=== PATIENT | female | born 1990 | race Caucasian/White ===

== ENCOUNTER 2020-07-23 01:04 | Outpatient (CLI) | payer OTHER, SELFPAY ==
[2020-07-23 18:04] LABS: SARS-CoV-2 RNA PCR Negative
== END 2020-07-23 01:05 | disposition home or self-care (01) ==
LOC: ANHCOVIDDT 01:05
PROVIDERS: Visit Provider Obstetrics & Gynecology
DX: Z01.812 Encounter for preprocedural laboratory examination (principal); Z20.828 Contact with and (suspected) exposure to other viral communicable diseases
CPT/HCPCS: 87635; C9803; U0003

== ENCOUNTER 2020-07-27 01:05 | Day surgery (SDC) | payer OTHER, SELFPAY ==
[2020-07-21 15:51] VITALS: BMI 25.8
--- NOTE | 2020-07-27 11:45 | WPDANESEPPF ---
Anes - Initial Pre Proc Eval Procedure: Operation Date: 07/27/20 13:00 Proposed Procedures p Suction Dilatation and Curettage - Luis William MD Date/Time: 07/27/20 11:45 Surgeon: Luis William MD Pre Op Diagnosis: missed AB Patient Data Age: 30 Gender: F Height: 5 ft 8 in Weight: 77 kg Allergies Allergy/AdvReac Type Severity Reaction Status Date / Time No Known Allergies Allergy Verified 07/27/20 11:16 Home Medications Medication Instructions Recorded Confirmed Type multivitamin 1 tablet PO DAILY 07/21/20 07/27/20 History Patient hx anesthesia problems: none Family hx anesthesia problems: none PMFSH Social History Social History Smoking status: Never smoker Alcohol intake: current Spiritual care concerns: No Anes - Eval Final PreProcedure Day of Procedure 07/27/20 11:45 Patient weight: normal Heart: regular rate and rhythm Lungs: clear to auscultation Airway: Mallampati scale class II Neurological: alert and oriented Last oral intake: >/= 8 hours ASA classification: II Emergent: no Anesthetic plan: proceed Anesthesia type and monitoring: general GIVS and standard monitoring Informed Consent: The patient's anesthetic plan and its attendant risks and benefits were discussed with the patient/family/POA. Questions were solicited and answers provided to the satisfaction of the patient/family/POA.
[2020-07-27] MEDS: LACTATED RINGERS 1,000 ML 30 ML IV CONT (11:46)
[2020-07-27] MEDS: SCOPOLAMINE 1.5 MG PATCH TRANSDERM (11:52)
[2020-07-27] MEDS: ACETAMINOPHEN 500 MG TABLET 1000 MG PO (11:52)
[2020-07-27 11:53] VITALS: BP 116/80; PULSE 85; RESP 16; TEMP 37.2; O2SAT 98
--- NOTE | 2020-07-27 12:07 | P.HP_ITS ---
H&P: HPI History of Present Illness Date/Time: 07/27/20 12:07 Chief complaint: missed AB Narrative: 30 y/o with a missed SAB. We tried cytotec, but she has had no results. Here for surgical managment. Ultrasound shows CRL 4.1 mm. No FHR. MBT Opos. Review of Systems Review of Systems: All systems reviewed & are unremarkable except as noted in HPI and below [facility] Surgical History Surgical History (Updated 07/27/20 @ 12:09 by Luis William MD) History of tonsillectomy and adenoidectomy Social History Social History Smoking status: Never smoker Alcohol intake: current Spiritual care concerns: No Meds Home Medications and Allergies Home Medications Medication Instructions Recorded Confirmed Type multivitamin 1 tablet PO DAILY 07/21/20 07/27/20 History Allergies Allergy/AdvReac Type Severity Reaction Status Date / Time No Known Allergies Allergy Verified 07/27/20 11:16 Vital Signs Vital Signs - 24 hr 07/27/20 11:53 Temperature 37.2 C Pulse Rate 85 Respiratory Rate 16 Blood Pressure 116/80 Pulse Oximetry 98 Exam Const: Orientation/consciousness: patient oriented x3 Other: Well- developed, well-nourished female in no acute distress. Neck: Thyroid: thyroid normal Lymphatic: no lymphadenopathy noted (in neck, axilla or inguinal nodes) Resp: Effort & Inspection: normal respiratory effort Auscultation: clear to auscultation bilaterally Cardio: Rate: regular rate Rhythm: regular rhythm Heart sounds: S1 normal heart sound present and S2 normal heart sound present GI: Other: ABD: Soft, nontender, nondistended. No guarding or rebound tenderness. No hepatosplenomegaly. : General: Yes no CVA tenderness Other: External genitalia: normal female hair distribution, without lesion. Urethral meatus: no lesion, non prolapsed. Bladder: no mass, nontender Vagina: well-estrogenized, without lesion or discharge. No cystocele or re ctocele. Cervix: no lesion or discharge. Uterus: small, anteverted, freely mobile, nontender Adnexa: no mass or tenderness. Anus/perineum: no lesions, nontender Back/Spine/Pelvis: Back: no CVA tenderness Skin: General skin exam: normal color and no rashes or lesions noted Neuro: General: patient oriented x3 Extrem: Other: Extremities: nontender with no edema Psych: Mental Status: mental status grossly normal Affect: normal affect Assessment and Plan Assessment and plan (1) Missed : Code(s): O02.1 - Missed Status: Acute Assessment and Plan: Offered dilation and suction curettage. She understands risks of surgery to include risks of anesthesia, risks of pain, infection, bleeding, blood products, thromboembolic phenomena and damage to adjacent structures such as bowel, bladder, ureters, blood vessels and nerves. She understands all these risks and elects to proceed with surgery.
--- NOTE | 2020-07-27 12:10 | WPDHPUPDATE1 ---
History and Physical Update Update Date/Time: 07/27/20 12:10 History and Physical has been reviewed, including an updated exam of the patient. There are NO changes in the patient's condition. Risks, benefits, and alternatives have been discussed and questions answered. Patient agrees to proceed with procedure.
[2020-07-27] MEDS: LIDOCAINE HCL 1% LOCAL INJ 20 ML VIAL 10 ML INFILTRATE (13:46)
[2020-07-27] MEDS: KETOROLAC 30 MG/ML VIAL (*BKC) IV PUSH (13:47)
--- NOTE | 2020-07-27 13:51 | PM.PROC ---
Procedure Note - Detailed Date of procedure: 07/27/20 Pre-op diagnosis: missed AB Post-op diagnosis: same Procedure performed: Dilation and suction curettage Description of procedure: The patient was taken to the operating room where she was prepared and draped in the usual sterile fashion in the dorsal lithotomy position. The bladder was drained with a red rubber catheter. A sterile speculum was placed into the vagina. The anterior lip of the cervix was grasped with a single-tooth tenaculum. Ten mL of 1% lidocaine was administered in a paracervical block. The cervix was gently dilated using Hegar dilators until an 8mm dilator could be passed. The 8mm curved tip suction curette was advanced. Suction curettage was performed and products of conception were aspirated. Sharp curettage was then performed until a good uterine cry was noted. A final pass with the suction curette was made. The tenaculum was removed. Hemostasis was excellent. Sponge, lap, needle and instrument counts were correct. The patient was taken to the recovery room in stable condition. I was present and scrubbed for the entire procedure. Implants: None Anesthesia: MAC and local (paracervical block) Surgeon: Luis William MD Estimated blood loss (mL): 50 Drains: No Packing: No Pathology: yes (endometrial curettings) Complications: None Condition: stable Disposition: PACU Findings: Products of conception noted.
[2020-07-27 13:53] VITALS: BP 134/85; PULSE 122; RESP 16; O2SAT 95
[2020-07-27 14:10] VITALS: BP 125/77; PULSE 73; RESP 16
[2020-07-27 14:20] VITALS: BP 110/74; PULSE 80; RESP 16
[2020-07-27 14:50] VITALS: BP 112/72; PULSE 74; RESP 16
[2020-07-27] MEDS: oxyCODONE HCL (*CRX) 5 MG TAB IR PO (14:55)
== END 2020-07-27 15:00 | disposition home or self-care (01) ==
PROVIDERS: Visit Provider Obstetrics & Gynecology
PROC: (CPT 59820; principal; 2020-07-27 13:00)
DX: O02.1 Missed abortion (principal)
CPT/HCPCS: 59820; 36415; 85461; 88305; A9270; J1100; J1885; J2250; J2405; J2704; J3010; J7120

== ENCOUNTER → 2020-08-30 13:22 | Outpatient (CLI) | payer OTHER, SELFPAY ==
--- NOTE | ~2020-08-30 | US_ITS ---
EXAMINATION: US thyroid DATE: 08/30/2020 13:40 INDICATION: Thyroid nodule. TECHNIQUE: Multiple ultrasound images of the thyroid were obtained. COMPARISON: None. FINDINGS: The right thyroid lobe measures 4.6 x 1.0 x 1.7 cm. The left thyroid lobe measures 4.8 x 1.3 x 1.4 c m. There is normal echotexture and echogenicity throughout the thyroid gland. No discrete nodules id entified. Normal vascular flow is present. IMPRESSION: 1. Normal thyroid. Reviewed, dictated and finalized at location A. ER/INSTALLER IMPRESSION: 1. Normal thyroid.
== END ==
PROVIDERS: Visit Provider Obstetrics & Gynecology
DX: E04.1 Nontoxic single thyroid nodule (principal)
CPT/HCPCS: 76536

== ENCOUNTER 2021-05-15 18:32 | Observation (INO) | payer OTHER, SELFPAY ==
[2021-05-15 18:49] VITALS: BP 119/66; PULSE 97
[2021-05-15 19:00] VITALS: BP 118/64; PULSE 98; BMI 29.6
--- NOTE | 2021-05-15 21:37 | OBADM ---
This patient, Jennifer Sparks, admitted to the OB room OB Post 112 for observation. Patient/family oriented to hospital policies and general routines including ID bracelet, bed and alarms, visiting hours, pain management, procedures, bathroom and other care routines, personal items, smoking policy, room service/diet, and visiting hours. Patient/Family are encouraged to report perceived risks to care and to ask questions if they do not understand what they are told or what they should do.
--- NOTE | 2021-06-05 08:48 | PM.OBTRLD ---
OB - Triage/Final Diagnosis Visit Information Comments/Additional reasons for admission: I have assessed the risk for this patient, Jennifer Sparks, and determined that she would benefit from observation care. Final Diagnosis (1) False labor: Code(s): O47.9 - False labor, unspecified Status: Acute
== END 2021-05-15 19:57 | disposition home or self-care (01) ==
PROVIDERS: Admitting Provider Obstetrics & Gynecology; Visit Provider Obstetrics & Gynecology
DX: O47.03 False labor before 37 completed weeks of gestation, third trimester (principal); Z3A.30 30 weeks gestation of pregnancy
CPT/HCPCS: G0378; G0379

== ENCOUNTER 2021-07-27 06:06 | Inpatient (IN) | payer OTHER, SELFPAY ==
[2021-07-27] VITALS (54 sets, daily range): BP systolic 72–129; BP diastolic 27–96; PULSE 68–142; RESP 16–18; TEMP 36.6–37.3; O2SAT 96–100; BMI 30.8
--- OUTSIDE RECORDS SUMMARY | 2021-07-27 06:11 | XMS_ITS ---
:1990 Author Care Team Providers Name Role Phone Unassigned Primary Care Provider Unavailable Allergies Code Code System Name Reaction Severity Status Onset NKDA ? Medications Name Status Start Date Stop Date ? ? azithromycin 250 mg tablet Completed ? 10/02 Bactrim DS 800 mg-160 mg tablet Completed ? 05/19/2020 Take 1 tablet every 12 hours by oral route with meals for 7 day s. cephalexin 500 mg capsule Active ? Not av ailable TAKE 1 CAPSULE BY MOUTH EVERY 12 HOURS WITH MEALS FOR 10 DAYS ciprofloxacin 500 mg tablet Completed ? 11/2019 cyclobenzaprine 10 mg tablet Completed ? 11/2020 TK 1 T PO TID PRN Flagyl 500 mg tablet Unknown ? Not availab le Take 1 tablet twice a day by oral route for 7 days. fluconazole 150 mg tablet Completed ? 2019 Take 1 tablet as needed by oral route with meals for 1 day. Fluzone Quad [id number] (PF) 60 mcg (15 Active ? Not available mcg x 4)/0.5 mL IM syringe hydrocodone 5 mg-acetaminophen 325 mg tablet Completed ? 11/16/2020 TK 1 T PO Q 4 H PRN P Microgestin FE 10/05 (28) 1 mg-20 mcg (21)/75 mg (7) tablet Compl eted ? 05/19/2020 TAKE ONE TABLET BY MOUTH ONCE DAILY misoprostol 200 mcg tablet Completed ? 11/16 I 4 TS PER VAGINA ONCE. REPEAT IN 4 DAYS IF NEEDED norethindrone (contraceptive) 0.35 mg Completed ? 11/16/2020 tablet promethazine 12.5 mg tablet Completed ? 11/2020 TK 1 T PO Q 6 H PRN phenazo
[2021-07-27 06:56] LABS: Basophils Percent Auto 0.2 % (0.2-1.2); Eosinophils Absolute Auto 0.1 K/mm3 (0-0.3); Eosinophils Percent Auto 0.6 % (0-4.4); Hematocrit 33.9 % (37.0-47.0); Immature Granulocyte Percent A 1.9 % (0-0.5); Lymphocytes Absolute Auto 1.71 K/mm3 (0.9-3.2); Lymphocytes Percent Auto 16.4 % (18.3-44.2); Mean Corpuscular HGB Conc 32.4 g/dl (32-36); Mean Corpuscular Hemoglobin 27.4 pg (26-34); Mean Corpuscular Volume 84.3 fl (80-100); Mean Platelet Volume 11.7 fl (7.4-10.4); Monocytes Absolute Auto 0.7 K/mm3 (0.1-0.6); Monocytes Percent Auto 6.7 % (2.6-8.5); Neutrophils Absolute Auto 7.8 K/mm3 (1.3-6.7); Neutrophils Percent Auto 74.2 % (45.5-73.1); Platelet Count Result 152 k/mm3 (150-375); Red Blood Count 4.02 M/mm3 (4.2-5.4); Red Cell Distribution Width 13.6 % (11.5-14.5); White Blood Count 10.4 K/mm3 (4.5-10.0)
[2021-07-27] MEDS: OXYTOCIN 30 UNITS/NS 500 ML 30 UNITS/500 ML BAG IV CONT (06:59)
[2021-07-27] MEDS: LACTATED RINGERS 1,000 ML 125 ML IV CONT ×2 (07:00→08:56)
--- NOTE | 2021-07-27 07:33 | LDADM ---
This patient, Jennifer Sparks, was admitted to Labor/Delivery/Recovery 104 on 07/27/21 at 06:06. Plans for labor, pain management and were discussed with patient. Patient/family oriented to hospital policies and general routines including ID bracelet, bed and alarms, visiting hours, pain management, procedures, bathroom and other care routines, personal items, smoking policy, room service/diet and guest tray routines, security routines, and visiting hours. Patient/Family are encouraged to report perceived risks to care and to ask questions if they do not understand what they are told or what they should do. See OBIX for further documentation.
--- NOTE | 2021-07-27 08:07 | WPDANESEPP ---
Anes - Eval Pre Procedure Procedure: labor epidural Date/Time: 07/27/21 08:07 Surgeon: luli Pre Op Diagnosis: iol Patient Data Age: 31 Gender: F Height: 1.73 m Weight: 92 kg Last Vital Signs Pulse 95 07/27/21 07:45 BP 114/66 07/27/21 07:45 Allergies Allergy/AdvReac Type Severity Reaction Status Date / Time No Known Allergies Allergy Verified 07/27/20 11:16 Home Medications Medication Instructions Recorded Confirmed Type multivitamin 1 tablet PO DAILY 07/21/20 05/15/21 History Laboratory Tests 07/27/21 07/27/21 06:31 06:31 WBC 10.4 K/mm3 H K/mm3 (4.5-10.0) RBC 4.02 M/mm3 L M/mm3 (4.2-5.4) Hgb 11.0 g/dL L g/dL (12.0-15.0) Hct 33.9 % L % (37.0-47.0) MCV 84.3 fl fl (80-100) MCH 27.4 pg pg (26-34) MCHC 32.4 g/dl g/dl (32-36) RDW 13.6 % % (11.5-14.5) Plt Count 152 k/mm3 k/mm3 (150-375) MPV 11.7 fl H fl (7.4-10.4) Immature Gran % (Auto) 1.9 % H % (0-0.5) Neut % (Auto) 74.2 % H % (45.5-73.1) Lymph % (Auto) 16.4 % L % (18.3-44.2) [place] % (Auto) 6.7 % % (2.6-8.5) Eos % (Auto) 0.6 % % (0-4.4) Baso % (Auto) 0.2 % % (0.2-1.2) Lymph # (Auto) 1.71 K/mm3 K/mm3 (0.9-3.2) [place] # (Auto) 0.7 K/mm3 H K/mm3 (0.1-0.6) Eos # (Auto) 0.1 K/mm3 K/mm3 (0-0.3) Baso # (Auto) 0.0 K/mm3 K/mm3 (0.0-0.1) Abs Immat Gran (auto) 0.20 K/mm3 H K/mm3 (0.00-0.031) Absolute Neuts (auto) 7.8 K/mm3 H K/mm3 (1.3-6.7) Absolute Nucleated RBC 0.0 K/mm3 K/mm3 (0.0-0.012) Nucleated RBC % 0.0 % % (0.0-0.2) RPR Pending Patient hx anesthesia problems: none Family hx anesthesia problems: none Results Review: All pre-operative results and documents have been reviewed as part of the pre-operative evaluation. [facility] Surgical History Surgical History (Updated 07/27/20 @ 12:09 by Luis William MD) History of tonsillectomy and adenoidectomy Family History Family History (Updated 07/06/21 @ 13:56 by Gavino Negron RN) Other No pertinent family history Social History Social History Smoking status: Never smoker Alcohol intake: current Substance use: never Spiritual care concerns: No Exam Day of Procedure 07/27/21 08:07
--- NOTE | 2021-07-27 08:20 | WPDOBADMIT ---
Obstetrics - Admit Note Admission Note: record reviewed. Additions to the history and/or subsequent changes in the physical findings follow. 31 y/o at 40 3/7 weeks here for induction of labor. GBS neg. AVSS NST reactive TOCO: contractions every 2-5 min ABD soft, nontender, gravid, vertex EXT nontender Cervix 5/80/-2. AROM with clear fluid. A: IUP at term with favorable cervix, desiring induction of labor. P: Oxytocin. Anticipate .
[2021-07-27] MEDS: ACETAMINOPHEN 500 MG TABLET 1000 MG PO (10:39)
[2021-07-27] MEDS: OXYTOCIN 30 UNITS/NS 500 ML 30 UNITS/500 ML BAG 125 UNITS IV CONT (12:21)
--- NOTE | 2021-07-27 12:54 | PM.OBPRVD ---
OB - Delivery Note Procedure Delivery date: 07/27/21 Procedure: Induction of labor with Induction method: per pitocin protocol Delivery augmentation: rupture of membranes Delivery monitor: external FHT and external uterine Route of delivery: Delivery repair: vicryl (3-0) Specimen: Yes (cord blood) Quantitative Blood Loss (ml): 280 Anesthesia type: Epidural Disposition: PACU Complications: None Narrative: 31 y/o at 40 3/7 weeks gestation who presented to the hospital for induction of labor. Oxytocin was administered intravenously. Amniotomy was performed with return of clear fluid. She received an epidural for pain control. Her labor progressed and her cervix dilated completely. She pushed with good effort and delivered the 's head to the perineum, followed by the body. The nose and mouth were bulb suctioned. After a delay, the cord was clamped and cut. The infant was handed off the field. Cord blood was collected. The placenta delivered spontaneously and was grossly normal in appearance. The usual 3 vessel cord was noted. A distal vaginal laceration was sustained. This was reapproximated using 3 0 Vicryl in figure of eight fashion. A second similar suture was used to reapproximate a right sided periurethral laceration. Excellent hemostasis resulted as did excellent reapproximation of the normal anatomy. Needle and instrument counts were correct. The patient was taken to recovery room in stable condition. I was present and scrubbed for the entire delivery. Baby Date of : 07/27/21 Time of : 11:50 Weeks of gestation at delivery: 40 Infant gender: Female Weight (pounds): 10 presentation: vertex position: Left Occiput Anterior Placenta delivery description: Spontaneous and Normal Configuration cord vessel description: 3 Vessels and Delayed Cord Clamping score one minute: 8 score five minutes: 8
[2021-07-27] MEDS: IBUPROFEN 600 MG TABLET PO ×2 (15:15→21:00)
[2021-07-27] MEDS: WITCH HAZEL 40 PADS 1 PAD TOPICAL (15:21)
[2021-07-27] MEDS: BENZOCAINE 20% AER SPR (*SP) 56 GM CAN 1 SPRAY TOPICAL (15:21)
--- NOTE | 2021-07-27 16:18 | OBPPTRN ---
Patient transferred to post room # 291 via wheelchair. Support person present. Oriented to unit, room, information board, rooming in, admission packet and security measures. Patient verbalizes understanding.
--- NOTE | 2021-07-27 17:56 | PM.OBDSVD ---
DS: Admitting Diagnosis Discharge Date 07/28/21 Admitting Diagnosis IUP at 40 weeks Favorable cervix DS: Discharge Diagnosis Discharge Diagnosis (1) (normal spontaneous vaginal delivery): Code(s): O80 - Encounter for full-term uncomplicated delivery Status: Acute OB - DS: Summary OB Procedures : None OB Procedures Intrapartum: Spontaneous Vag Delivery OB Procedures: : None DS: Data Data Completed and Pending Labs on day of discharge: Labs from last 24 hours 07/27/21 07/27/21 07/27/21 06:31 06:31 06:31 WBC 10.4 H RBC 4.02 L Hgb 11.0 L Hct 33.9 L MCV 84.3 MCH 27.4 MCHC 32.4 RDW 13.6 Plt Count 152 MPV 11.7 H Immature Gran % (Auto) 1.9 H Neut % (Auto) 74.2 H Lymph % (Auto) 16.4 L [place] % (Auto) 6.7 Eos % (Auto) 0.6 Baso % (Auto) 0.2 Lymph # (Auto) 1.71 [place] # (Auto) 0.7 H Eos # (Auto) 0.1 Baso # (Auto) 0.0 Abs Immat Gran (auto) 0.20 H Absolute Neuts (auto) 7.8 H Absolute Nucleated RBC 0.0 Nucleated RBC % 0.0 RPR Pending Blood Type O Positive Antibody Screen Negative Discharge Plan Discharge Attending physician on discharge: Luis William Discharging Clinician: Luis William Patient Disposition: Home, Self-Care Activity: pelvic rest Diet: regular Discharge Instructions: Call or return if temperature above 100.4? F, increased abdominal pain, increased vaginal bleeding or any new problems. Education: Mom and Baby Guide Given to: Mother Follow-Up: Call your delivering provider's office for an appointment to be seen in: 6 Weeks Mom and baby [facility] for the follow-up appointment. Appointment Date/Time: July 31, 2021 at 10:00 am What to expect at your follow-up visit: Blood Pressure Check Physical Assessment Call [phone] if you are unable to keep your appointment time. BREAST CARE: * Wear a snug supportive bra. * For engorgement discomfort: Breast Feeding: * Apply warm moist washcloths * Express milk as needed to relieve engorgement * Wear loose clothing Bottle Feeding: * May apply ice packs * For sore nipples: * Identify correct latch-on * Apply warm moist washcloths before and after nursing * Air dry nipples after nursing * May apply Lansinoh cream to nipples EPISIOTOMY/PERINEAL CARE: * Until bleeding stops, use your alex bottle after urinating * Change your pad frequently throughout the day * You may take sitz baths several times a day (fill your bathtub with warm water and soak for 20 minutes.) Do NOT bathe in the water * No tub baths until seen by your physician - You may shower ACTIVITY: * Rest as much as possible. * Do not exercise or lift anything heavier than your baby (such as laundry or other children.) * Avoid stairs or driving as much as possible. * Do not put anything into the vagina. No douching, tampons, or sexual activity until seen by physician. NOTIFY PHYSICIAN IF YOU HAVE ANY QUESTIONS OR IF ANY OF THE FOLLOWING SYMPTOMS OCCUR: * If your episiotomy or incision becomes red, swollen, or more painful than what you have experienced in the hospital. * If your vaginal bleeding becomes foul smelling. * If your vaginal bleeding becomes more heavy than a period or if your bleeding changes from pink to bright red. However, you may pass an occasional walnut-sized clot once or twice for the first week . * If you experience a sharp, shooting pain in you calves. * If you discover a hard, reddened area on your breast or if you experience flu-like symptoms. DIET: * Eat regular, well-balanced meals. * Drink plenty of fluids daily. If , drink to thirst. Stand Alone Forms: General Discharge Information Follow-up/Referrals: Luis William MD [Physician] - 6 Weeks Dis
[2021-07-27] MEDS: ACETAMINOPHEN 325 MG TABLET 650 MG PO (22:41)
[2021-07-28] MEDS: IBUPROFEN 600 MG TABLET PO ×3 (03:28→14:48)
[2021-07-28 03:30] VITALS: BP 122/79; PULSE 69; RESP 16; TEMP 36.8; O2SAT 100
[2021-07-28 05:14] LABS: Hematocrit 32.7 % (37.0-47.0); Hemoglobin 10.3 g/dL (12.0-15.0)
[2021-07-28 08:50] VITALS: BP 123/54; PULSE 88; RESP 18; TEMP 36.8; O2SAT 99
[2021-07-28] MEDS: ACETAMINOPHEN 325 MG TABLET 650 MG PO ×2 (09:18→14:49)
[2021-07-28] MEDS: MULTIVIT/MIN/PREN/FOL AC/IRON TABLET 1 TAB PO (09:18)
--- NOTE | 2021-07-28 09:30 | PC.NURSE ---
Consult with pt., observed mother is able to independently latch with appropriate positioning/alignment. Infant eagerly latches on first attempt with long rhythmical draws and frequent swallowing noted. She denies any nipple discomfort, is feeding as required and waking infant to feed if needed. Infant has had at least 8 effective feedings in the past 24 hours, and is currently meeting outcomes for weight, output, jaundice and feeding frequencies. Mother states she feels confident to continue effective at home. Reviewed transition to breast milk, signs of adequate intake, and engorgement/relief. Instructed to call ICP if intake/output less than required. Reviewed regular medications mother is taking. Information provided per [facility]. Reviewed community resources on the [facility] website and in the Mom/Baby guide. Information on outpatient services provided. Mother has no further questions at this time. Instructed feeding should be initiated three hours from start of last feeding or if feeding cues are noted before until seen by ICP. Mother voiced understanding of information shared.
[2021-07-28 10:17] LABS: Rapid Plasma Reagin Non-Reactive (NonReactive)
--- NOTE | 2021-07-28 10:25 | P.PNOB_ITS ---
OB - PN: Subj Subjective Date/time seen: 07/28/21 10:25 Patient comments: no complaints and pain well controlled baby status: doing well and nursing well OB - PN: Obj Data Labs CBC & Chem 7: 07/28/21 03:32 Labs: Laboratory Results - last 24 hr 07/27/21 07/28/21 06:31 03:32 Hgb 10.3 L Hct 32.7 L RPR Non-reactive OB - PN A/P Plan day: 1 Plan: routine care Time Spent With Patient Time: Total time spent is greater than 50% in coordination of care (as documented) at patient's floor/unit and/or counseling patient: Time with patient: less than 15 minutes Review of Systems Review of Systems: All systems reviewed & are unremarkable except as noted in HPI and below Exam Const: General: no acute distress Eyes: General: appearance normal, both eyes and all related structures Neck: Neck: supple and no JVD Thyroid: thyroid normal Resp: Effort & Inspection: normal respiratory effort Auscultation: clear to auscultation bilaterally Cardio: Rate: regular rate Rhythm: regular rhythm GI: Inspection: normal to inspection and incision (cdi) : General: Yes bladder normal to palpation External Female Exam: normal e xternal appearance Speculum Exam - Vagina: normal vaginal discharge and No vaginal bleeding Speculum Exam - Cervix: nontender Bimanual exam- vagina & uterus: bladder normal to palpation and No Cervical tenderness present OB/external & speculum: No vaginal bleeding Skin: General skin exam: no rashes or lesions noted Extrem: General: normal to inspection and no edema Psych: Mental Status: mental status grossly normal Affect: normal affect
--- NOTE | 2021-07-28 10:55 | PC.NURSE ---
Mother called out for assist with feeding, reporting slight tenderness at times during the feeding. Infant is able to freely thrust tongue past gum ridge and flange both lips. Skin is intact on both nipples, no redness and bruising noted. Reviewed infant feeding cues, frequencies, duration of feedings, feeding elimination flow sheet, and signs of adequate intake. Demonstrated stimulation techniques to wake infant for feeding. Assisted with infant to breast. Reviewed positioning/alignment in football, holding breast in ?C? hold and guided asymmetrical latch on. Reviewed rational for each. Infant able to latch correctly within a few attempts. Infant tends to roll bottom lip in, demonstrated how to roll out while feeding. Infant nursed eagerly with steady draws and occasional swallowing noted, some pausing noted. Reviewed signs of a correct latch, effective nursing and suck swallow ratio. Suggested mother stimulate while feeding to increase stimulation for milk supply, for increased intake and to assist with maintaining deep latch. would slip to shallow latch causing tenderness. Demonstrated how to adjust latch more deeply while feeding as needed. Mother reports she can feel the difference in latch with less tenderness. Nipple care reviewed of lanolin after feedings, warm compresses as needed, gel pads provided and reviewed care and cleaning. Instructed mother to call out for RN assistance if she is unable to latch infant for feeding or she has discomfort with nursing. Instructed feeding should be initiated three hours from start of last feeding or if feeding cues are noted before. Mother voiced understanding of information shared.
[2021-07-31 10:36] VITALS: BP 111/66; PULSE 90; RESP 20; TEMP 36.9; O2SAT 100
== END 2021-07-28 17:54 | disposition home or self-care (01) | DRG 807 ==
LOC: ANHOB2 07-28 14:29 → ANHLDR 07-31 10:13 → ANHOB2 07-31 10:13
PROVIDERS: Admitting Provider Obstetrics & Gynecology; Visit Provider Obstetrics & Gynecology
DX: O70.0 First degree perineal laceration during delivery (principal); Z37.0 Single live birth; O71.82 Other specified trauma to perineum and vulva; Z3A.40 40 weeks gestation of pregnancy
CPT/HCPCS: 36415; 85014; 85018; 85025; 86592; 86850; 86900; 86901; A9270; J2590; J2795; J7120

== ENCOUNTER 2022-09-14 10:40 | Outpatient (CLI) | payer OTHER, SELFPAY ==
--- NOTE | ~2022-09-14 | US_ITS ---
EXAMINATION: US OB follow up DATE: 09/14/2022 11:07 INDICATION: Placental location and weight assessment during third trimester TECHNIQUE: Real-time ultrasound of the pelvis was performed. The interpreting radiologist was not pre sent for the study. COMPARISON: None. FINDINGS: There is a single living fetus in vertex presentation. The placenta is posterior and out of range for distance measurement from the internal cervical os. cardiac activity and movem ent are noted. heart rate is 137 beats per minute (bpm). The amniotic fluid index is 12.6 cm wh ich is normal (normal range: 9.2 cm to 23.1 cm). The following biometric data were obtained: Biparietal diameter (BPD): 8.2 cm; head circumference (HC): 30.1 cm; abdominal circumference (AC): 26 .9 cm; femur length (FL): 6.0 cm. These measurements are concordant. Estimated weight is 1768 g +/- 265 g, which correlates with the 91st percentile when 11/25/2022 is used as estimated date of delivery. As single measurements, these parameters are each equal to the following estimated gestational ages w ith ranges of +/- 2 standard deviations: BPD: 33 weeks 0 days ( 30 weeks 0 days - 36 weeks 1 days). HC: 33 weeks 3 days ( 30 weeks 3 days - 36 weeks 3 days). AC: 31 weeks 0 days ( 28 weeks 0 days - 34 weeks 0 days). FL: 31 weeks 1 days ( 28 weeks 2 days - 34 weeks 1 days). estimated gestational age based solely on measurements from this exam is 32 weeks 1 days +/- 2 weeks 2 days. IMPRESSION: 1. Single living fetus in vertex presentation. 2. Normal amniotic fluid index. 3. Estimated weight is 1768 g +/- 265 g, which correlates with the 91st percentile when 11/26/19 23 is used as estimated date of delivery. 4. Posterior placenta out of range for distance measurements from the internal cervical os. Reviewed, dictated and finalized at location B. [facility] IMPRESSION: 1. Single living fetus in vertex presentation. 2. Normal amniotic fluid index. 3. Estimated weight is 1768 g +/- 265 g, which correlates with the 91st p ercentile when 11/25/2022 is used as estimated date of delivery. 4. Posterior placenta out of range for distance measurements from the internal cervical os.
== END 2022-09-14 10:41 ==
LOC: MICIMG 10:41
PROVIDERS: PCP Obstetrics & Gynecology; Visit Provider Obstetrics & Gynecology
DX: Z36.89 Encounter for other specified antenatal screening (principal)
CPT/HCPCS: 76816

== ENCOUNTER 2022-11-21 07:19 | Inpatient (IN) | payer OTHER, SELFPAY ==
[2022-11-21] VITALS (94 sets, daily range): BP systolic 87–165; BP diastolic 38–109; PULSE 86–161; RESP 18; TEMP 36.3–36.9; O2SAT 92–100; BMI 31.8
[2022-11-21] MEDS: LACTATED RINGERS 1,000 ML 125 ML IV CONT ×2 (07:55→18:02)
[2022-11-21] MEDS: OXYTOCIN 30 UNITS/NS 500 ML 30 UNITS/500 ML BAG IV CONT (07:55)
[2022-11-21 08:17] LABS: Basophils Percent Auto 0.2 % (0.2-1.2); Eosinophils Percent Auto 0.4 % (0-4.4); Hematocrit 32.5 % (37.0-47.0); Hemoglobin 10.1 g/dL (12.0-15.0); Immature Granulocyte Absolute 0.18 K/mm3 (0.00-0.031); Immature Granulocyte Percent A 1.9 % (0-0.5); Lymphocytes Absolute Auto 1.61 K/mm3 (0.9-3.2); Lymphocytes Percent Auto 17.1 % (18.3-44.2); Mean Corpuscular HGB Conc 31.1 g/dl (32-36); Mean Corpuscular Hemoglobin 24.9 pg (26-34); Mean Platelet Volume 11.2 fl (7.4-10.4); Monocytes Absolute Auto 0.6 K/mm3 (0.1-0.6); Monocytes Percent Auto 6.8 % (2.6-8.5); Neutrophils Absolute Auto 6.9 K/mm3 (1.3-6.7); Neutrophils Percent Auto 73.6 % (45.5-73.1); Platelet Count Result 146 k/mm3 (150-375); Red Blood Count 4.06 M/mm3 (4.2-5.4); Red Cell Distribution Width 14.1 % (11.5-14.5); White Blood Count 9.4 K/mm3 (4.5-10.0)
--- NOTE | 2022-11-21 08:47 | WPDOBADMIT ---
Obstetrics - Admit Note Admission Note: record reviewed. Additions to the history and/or subsequent changes in the physical findings follow. 32 y/o P2022 at 39 3/7 weeks with favorable cervix, here for scheduled induction of labor. GBS neg. EFW 98th percentile. History of 10# delivery. AVSS NST reactive TOCO: contractions every 2-3 min ABD gravid, nontender EXT nontender Cervix 3/50/-2. AROM with clear fluid. Vertex. IUPC placed. A: IUP at 39 3/7 weeks desiring induction of labor. P: Oxytocin. Anticipate .
[2022-11-21 10:05] LABS: Rapid Plasma Reagin Non-Reactive (NonReactive)
--- NOTE | 2022-11-21 10:42 | WPDANESEPP ---
Anes - Eval Pre Procedure Procedure: Labor Epidural Date/Time: 11/21/22 10:42 Surgeon: Nataliia Preop Diagnosis: Labor Pain Pre Op Diagnosis: iol Patient Data Age: 32 Gender: F Height: 1.73 m Weight: 95 kg Last Vital Signs Temp 36.6 C 11/21/22 09:30 Pulse 102 H 11/21/22 10:32 BP 122/71 11/21/22 10:32 O2 Del Method Room Air 11/21/22 07:36 Allergies Allergy/AdvReac Type Severity Reaction Status Date / Time No Known Allergies Allergy Verified 07/27/20 11:16 Home Medications Medication Instructions Recorded Confirmed Type multivitamin 1 tablet PO DAILY 07/21/20 11/02/22 History Laboratory Tests 11/21/22 11/21/22 07:27 08:12 WBC 9.4 K/mm3 K/mm3 (4.5-10.0) RBC 4.06 M/mm3 L M/mm3 (4.2-5.4) Hgb 10.1 g/dL L g/dL (12.0-15.0) Hct 32.5 % L % (37.0-47.0) MCV 80.0 fl fl (80-100) MCH 24.9 pg L pg (26-34) MCHC 31.1 g/dl L g/dl (32-36) RDW 14.1 % % (11.5-14.5) Plt Count 146 k/mm3 L k/mm3 (150-375) MPV 11.2 fl H fl (7.4-10.4) Immature Gran % (Auto) 1.9 % H % (0-0.5) Neut % (Auto) 73.6 % H % (45.5-73.1) Lymph % (Auto) 17.1 % L % (18.3-44.2) Winn % (Auto) 6.8 % % (2.6-8.5) Eos % (Auto) 0.4 % % (0-4.4) Baso % (Auto) 0.2 % % (0.2-1.2) Lymph # (Auto) 1.61 K/mm3 K/mm3 (0.9-3.2) Winn # (Auto) 0.6 K/mm3 K/mm3 (0.1-0.6) Eos # (Auto) 0.0 K/mm3 K/mm3 (0-0.3) Baso # (Auto) 0.0 K/mm3 K/mm3 (0.0-0.1) Abs Immat Gran (auto) 0.18 K/mm3 H K/mm3 (0.00-0.031) Absolute Neuts (auto) 6.9 K/mm3 H K/mm3 (1.3-6.7) Absolute Nucleated RBC 0.0 K/mm3 K/mm3 (0.0-0.012) Nucleated RBC % 0.0 % % (0.0-0.2) RPR Non-reactive (NonReactive) : gestational age (MOSHE 11/26/22) HCG: positive Patient hx anesthesia problems: none Family hx anesthesia problems: none Results Review: All pre-operative results and documents have been reviewed as part of the pre-operative evaluation. [facility] Surgical History Surgical History History of tonsillectomy and adenoidectomy Family History Family History Other No pertinent family history Social History Social History Smoking status: Never smoker Alcohol intake: current Substance use: never Lack of Transportation: No Lack of Food: Never True Current Housing: I Have Housing Concerned About Future Housing: No Difficulty Paying Gas/Electric Bills: No Difficulty Paying for Meds: No Currently Unemployed: No Education: Master's Degree or Higher Difficulty w/ Childcare or Family Care: No Spiritual care concerns: No Exam Day of Procedure 11/21/22 10:42 Patient weight: normal Heart: regular rate and rhythm Lungs: normal air movement Airway: Mallampati scale class II Neurological: alert and oriented
--- NOTE | 2022-11-21 12:36 | PM.OBPNLAB ---
Pain Control Date/time seen: 11/21/22 12:36 Comments: Feeling more contractions. Pelvic Exam Dilation (cm): 4 Effacement (%): 50 station: -2 Contractions Contraction frequency: 4 Contraction pattern: Regular Status status: Category l Assessment and Plan Pitocin rate (mU/min): 16 Comments: Continue labor.
--- NOTE | 2022-11-21 15:36 | PM.OBPNLAB ---
Pain Control Date/time seen: 11/21/22 15:36 Comments: Comfortable with epidural. Pelvic Exam Dilation (cm): 6 Effacement (%): 80 station: -1 Contractions Contraction frequency: 3 Contraction pattern: Regular Status status: Category l Assessment and Plan Pitocin rate (mU/min): 20 Plan: continuous present management
--- NOTE | 2022-11-21 19:12 | PM.OBPRVD ---
OB - Delivery Note Procedure Delivery date: 11/21/22 Procedure: Induction of labor with Induction method: Per Pitocin Protocol Delivery augmentation: Rupture of Membranes and Pitocin Delivery monitor: External FHT, External Uterine and Internal Uterine Route of delivery: Laceration Description: None Specimen: Yes (cord blood) Quantitative Blood Loss (ml): 180 Anesthesia type: Epidural Disposition: PACU Complications: None Narrative: 32 y/o at 39 3/7 weeks gestation who presented to the hospital for induction of labor. Oxytocin was administered intravenously. Amniotomy was performed with return of clear fluid. She received an epidural for pain control. Her labor progressed and her cervix dilated completely. She pushed with good effort and delivered the 's head to the perineum. A loose nuchal cord was splinted. The body delivered and the cord was reduced. The nose and mouth were bulb suctioned. After a delay, the cord was clamped and cut. The infant was handed off the field. Cord blood was collected. The placenta delivered spontaneously and was grossly normal in appearance. The usual 3 vessel cord was noted. There were no lacerations. Needle and instrument counts were correct. The patient was taken to recovery room in stable condition. The infant went to the nursery in stable condition. I was present and scrubbed for the entire delivery. Baby Date of : 11/21/22 Time of : 18:54 Weeks of gestation at delivery: 39 Infant gender: Male Weight (pounds): 10 Weight (ounces): 4 presentation: vertex position: Right Occiput Anterior Placenta delivery description: Spontaneous and Normal Configuration Cord Vessel Description: 3 Vessels, Nuchal Cord and Delayed Cord Clamping score one minute: 9 score five minutes: 9
--- NOTE | 2022-11-21 19:19 | P.DS_ITS ---
DS: Admitting Diagnosis Discharge Date 11/23/22 Admitting Diagnosis IUP at 39 3/7 weeks DS: Discharge Diagnosis Discharge Diagnosis (1) (normal spontaneous vaginal delivery): Code(s): O80 - Encounter for full-term uncomplicated delivery Status: Acute OB - DS: Summary OB Procedures : None OB Procedures Intrapartum: Spontaneous Vag Delivery OB Procedures: : None Time Spent with Patient Time attestation: Total time spent providing and/or coordinating discharge services: DS: Data Data Completed and Pending Labs on day of discharge: Labs from last 24 hours 11/21/22 11/21/22 11/21/22 08:12 07:27 07:27 WBC 9.4 RBC 4.06 L Hgb 10.1 L Hct 32.5 L MCV 80.0 MCH 24.9 L MCHC 31.1 L RDW 14.1 Plt Count 146 L MPV 11.2 H Immature Gran % (Auto) 1.9 H Neut % (Auto) 73.6 H Lymph % (Auto) 17.1 L Pierce % (Auto) 6.8 Eos % (Auto) 0.4 Baso % (Auto) 0.2 Lymph # (Auto) 1.61 Pierce # (Auto) 0.6 Eos # (Auto) 0.0 Baso # (Auto) 0.0 Abs Immat Gran (auto) 0.18 H Absolute Neuts (auto) 6.9 H Absolute Nucleated RBC 0.0 Nucleated RBC % 0.0 RPR Non-reactive Blood Type O Positive Antibody Screen Negative Discharge Plan Discharge Attending physician on discharge: Luis William Discharging Clinician: Luis William Patient Disposition: Home, Self-Care Activity: pelvic rest Diet: regular Discharge Instructions: Call or return if temperature above 100.4? F, increased abdominal pain, increased vaginal bleeding or any new problems. Stand Alone Forms: General Discharge Information Follow-up/Referrals: Luis William MD [Physician] - 6 Weeks Discharge Medications: New ibuprofen 600 mg tablet 600 mg PO Q6H PRN (Reason: cramps) Qty: 30 0RF ferrous sulfate 325 mg (65 mg iron) tablet 325 mg PO DAILY Qty: 30 0RF Continued multivitamin Tablet 1 tablet PO DAILY Date of admission: 11/21/22 07:19 Primary Care Provider: PHYSICIAN,OWNER OPERATOR [employer] Admitting Provider: Luis William Attending physician on admission: Luis William Condition: Stable
[2022-11-21] MEDS: OXYTOCIN 30 UNITS/NS 500 ML 30 UNITS/500 ML BAG 125 UNITS IV CONT (19:30)
[2022-11-21] MEDS: IBUPROFEN 600 MG TABLET PO (20:19)
[2022-11-21] MEDS: BENZOCAINE 20% AER SPR (*SP) 56 GM CAN 1 SPRAY TOPICAL (20:20)
[2022-11-21] MEDS: WITCH HAZEL 40 PADS 1 PAD TOPICAL (20:20)
[2022-11-21] MEDS: LANOLIN (LANSINOH) 7.5 GM CREAM 1 APPLIC TOPICAL (20:20)
[2022-11-22 03:56] VITALS: BP 110/42; PULSE 98; RESP 16; TEMP 36.8; O2SAT 100
[2022-11-22 05:24] LABS: Hematocrit 29.8 % (37.0-47.0); Hemoglobin 9.3 g/dL (12.0-15.0)
[2022-11-22] MEDS: IBUPROFEN 600 MG TABLET PO ×3 (07:10→20:13)
[2022-11-22] MEDS: POLYSACCHARIDE IRON COMPLEX 150 MG CAPSULE PO ×2 (07:10→16:12)
[2022-11-22] MEDS: MULTIVIT/MIN/PREN/FOL AC/IRON TABLET 1 TAB PO (07:10)
[2022-11-22] MEDS: DOCUSATE SODIUM 100 MG CAPSULE PO ×2 (07:10→16:12)
[2022-11-22 08:25] VITALS: BP 112/68; PULSE 88; RESP 16; TEMP 36.6; O2SAT 99
--- NOTE | 2022-11-22 10:30 | WPDANLDPN2 ---
Anes-Prog Note L&D Date/Time: 11/22/22 10:30 Neuro status: Neuro function grossly intact. Vital Signs: Last Vital Signs Temp 36.6 C 11/22/22 08:25 Pulse 88 11/22/22 08:25 Resp 16 11/22/22 08:25 BP 112/68 11/22/22 08:25 Pulse Ox 99 11/22/22 08:25 O2 Del Method Room Air 11/22/22 07:10 Pain score (VAS): 0 I/O: Intake & Output 11/21/22 11/22/22 11/22/22 23:59 07:59 15:59 Intake Total 1000 Output Total 348 Balance 652 Patient feedback: Patient satisfied with anesthetic care.
--- NOTE | 2022-11-22 13:07 | PM.OBPNVD ---
OB - PN: Subj Subjective Date/time seen: 11/22/22 13:07 Narrative: Pain OK. Would like circumcision for son. OB - PN: Obj Data Labs 11/22/22 03:51 Labs: Laboratory Results - last 24 hr 11/22/22 03:51 Hgb 9.3 L Hct 29.8 L OB - PN A/P Plan Comments: A: PPD#1, doing well. P: Routine care. Reviewed circ. Plan home tomorrow. Exam Psych: Other: AVSS ABD soft, nontender, fundus firm EXT nontender
--- NOTE | 2022-11-22 14:19 | PC.NURSE ---
[id number] P3 Mother verbalizes she is able to independently latch with appropriate positioning/alignment. She denies any nipple discomfort and is responsively majority of the time. Mother voiced that she understands the difference between an effective and ineffective latch. is currently meeting outcomes for weight, output, jaundice and feeding frequencies of 8-12 times in 24 hours. Mother declines any additional assistance/education at this time. Mother is encouraged to call for assistance if her infant doesn?t latch or there is discomfort with latching. Mother voiced understanding of information shared and the mom reminded of the mom/baby guide for an additional resource. Reported to the primary RN.
[2022-11-22 16:00] VITALS: BP 110/64; PULSE 84; RESP 16; TEMP 36.8; O2SAT 98
[2022-11-22 20:10] VITALS: BP 118/61; PULSE 88; RESP 18; TEMP 36.7; O2SAT 99
[2022-11-23] MEDS: ACETAMINOPHEN 325 MG TABLET 650 MG PO (03:45)
[2022-11-23] MEDS: MULTIVIT/MIN/PREN/FOL AC/IRON TABLET 1 TAB PO (08:11)
[2022-11-23] MEDS: DOCUSATE SODIUM 100 MG CAPSULE PO (08:11)
[2022-11-23] MEDS: IBUPROFEN 600 MG TABLET PO (08:11)
[2022-11-23] MEDS: POLYSACCHARIDE IRON COMPLEX 150 MG CAPSULE PO (08:11)
[2022-11-23 08:20] VITALS: BP 119/68; PULSE 82; RESP 16; TEMP 37.2; O2SAT 99
--- NOTE | 2022-11-23 08:36 | PM.OBPNVD ---
OB - PN: Subj Subjective Date/time seen: 11/23/22 08:36 Narrative: Pain OK. Would like to go home. OB - PN: Obj Data Labs 11/22/22 03:51 OB - PN A/P Plan Comments: A: PPD#2, doing well. P: Home to f/u 6 weeks. Exam Psych: Other: AVSS ABD soft, nontender, fundus firm EXT nontender
--- NOTE | 2022-11-23 10:55 | PC.NURSE ---
[id number] Mother verbalizes she is able to independently latch with appropriate positioning/alignment. She denies any nipple discomfort and is responsively . is currently meeting outcomes for weight, output, jaundice and feeding frequencies of 8-12 times in 24 hours. Mother states she is confident with effectively using the techniques suggested yesterday with the U-hold versus what she was practicing. Encouragement was given to the parents. Mother declines any additional assistance/education at this time and is encouraged to call for assistance if her doesn?t latch or there is discomfort with latching. Mother voiced understanding of information shared and directed to the feeding sheet for the office number if she has questions or problems after going home regarding . Reported to the primary RN.
[2022-11-24 08:49] VITALS: BP 109/61; PULSE 90; RESP 18; TEMP 36.8; O2SAT 98
== END 2022-11-23 14:48 | disposition home or self-care (01) | DRG 807 ==
LOC: ANHLDR 19:20 → ANHOB2 22:29
PROVIDERS: Admitting Provider Obstetrics & Gynecology; Visit Provider Obstetrics & Gynecology
DX: O69.81X0 Labor and delivery complicated by cord around neck, without compression, not applicable or unspecified (principal); Z37.0 Single live birth; Z3A.39 39 weeks gestation of pregnancy
CPT/HCPCS: 36415; 85014; 85018; 85025; 86592; 86850; 86900; 86901; A9270; J2590; J2795; J7120

== ENCOUNTER 2023-07-30 08:00 | Outpatient (NON) | payer OTHER, SELFPAY | END 2023-07-30 08:01 | disposition home or self-care (01) | LOC: ANHLAB 07-31 14:38 | PROVIDERS: Visit Provider Nurse Practitioner | DX: D48.5 Neoplasm of uncertain behavior of skin (principal) | CPT/HCPCS: 88305 ==